=== PATIENT | male | born 1990 ===

== ENCOUNTER 2017-06-25 16:55 | Emergency (ER) | payer OTHER ==
[~2017-06-25] VITALS: Ht 180.3 cm; Wt 86.2 kg
[2017-06-25] MEDS ORDERED: AZIT-1 PO (17:08)
--- NOTE | 2017-06-25 17:11 | ER Report ---
History and Physical Time Seen By MD: 17:03 Hx. of Stated Complaint: LYMPH NODE SWELLING FOR 6 DAYS, SEEN AT URGENT CARE, PLACED ON ZITHROMAX YESTERDAY. NOTED RASH ON SATURDAY AM ON CHEST AND SHOULDERS, RASH IS WORSE NOW, TESTED FOR STREP AND MONO, BOTH NEGATIVE, AWAITING TROAT CULTURE HPI/ROS CHIEF COMPLAINT: Lymph node swelling, rash HISTORY OF PRESENT ILLNESS: Patient is a 27-year-old male who presents the ED with complaint of left neck lymph node swelling that is notified past 6 days. He states he also developed a rash 2 days ago. He states that he was seen at urgent care yesterday and was given Zithromax to cover for bacterial infection. He states that he did have a negative strep and mono test completed at that time. He has not noted any fatigue. He denies any cough, sore throat, otalgia. He has not noted any fever. REVIEW OF SYSTEMS: Constitutional: See history of present illness. Eyes: No discharge. ENT: See history of present illness. Cardiovascular: No chest pain, no palpitations. Respiratory: See history of present illness. No shortness of breath Gastrointestinal: No abdominal pain, no vomiting. Skin: See history of present illness. Neurological: No headache. Allergies: Coded Allergies: cefaclor (Verified Allergy, Unknown, 06/25/17) Home Meds Reported Medications Azithromycin (ZITHROMAX) 250 Mg Tablet, 1 TAB PO QDAY, TAB 06/25/17 Reviewed Nurses Notes: Yes Old Medical Records Reviewed: Yes Constitutional Vital Sign - Last 24 Hours 06/25/17 17:00 Temp 99.0 Pulse 84 Resp 20 B/P (MAP) 143/94 Pulse Ox 95 O2 Delivery Room Air Physical Exam General Appearance: The patient is alert, has no immediate need for airway protection and no signs of toxicity. Patient appears to be no acute distress. Eyes: Pupils equal and round no pallor or injection. ENT, Mouth: There is no exudate or pharyngeal edema or erythema appreciated. There is a left anterior cervical lymphadenopathy appreciated. This area is tender to palpation. Respiratory: There are no retractions, lungs are clear to auscultation. Cardiovascular: Regular rate and rhythm. Gastrointestinal: Abdomen is soft and non tender, no masses, bowel sounds normal. Skin: There is a slightly erythematous macular papular rash noted of the chest, thoracic back, shoulders, neck. Musculoskeletal: Neck is supple non tender. Extremities are nontender, nonswollen and have full range of motion. DIFFERENTIAL DIAGNOSIS: After history and physical exam differential diagnosis was considered for rash and the swelling including lymphadenitis, acute pharyngitis, upper respiratory infection, viral illness, pneumonia. Medical Decision Making Data Points Result Diagram: 06/25/17 1716 06/25/17 1716 Laboratory Hematology Test 06/25/17 17:16 Red Blood Count 6.12 M/uL (4.00-5.60) Mean Corpuscular Volume 82.1 fL (80.0-96.0) Mean Corpuscular Hemoglobin 28.7 pg (26.0-33.0) Mean Corpuscular Hemoglobin Concent 34.9 g/dL (32.0-36.0) Red Cell Distribution Width 12.6 % (11.5-14.5) Mean Platelet Volume 7.3 fL (7.2-11.1) Neutrophils (%) (Auto) 81.8 % (39.4-72.5) Lymphocytes (%) (Auto) 10.3 % (17.6-49.6) Monocytes (%) (Auto) 5.0 % (4.1-12.4) Eosinophils (%) (Auto) 2.4 % (0.4-6.7) Basophils (%) (Auto) 0.5 % (0.3-1.4) Nucleated RBC Relative Count (auto) 0.5 /100WBC Neutrophils # (Auto) 6.8 K/uL (2.0-7.4) Lymphocytes # (Auto) 0.9 K/uL (1.3-3.6) Monocytes # (Auto) 0.4 K/uL (0.3-1.0) Eosinophils # (Auto) 0.2 K/uL (0.0-0.5) Basophils # (Auto) 0.0 K/uL (0.0-0.1) Nucleated RBC Absolute Count (auto) 0.04 K/uL Sodium Level 138 mmol/L (137-145) Potassium Level 4.0 mmol/L (3.5-5.0) Chloride Level 99 mmol/L (98-107) Carbon Dioxide Level 28 mmol/L (22-30) Blood Urea Nitrogen 16 mg/dl (9-21) Creatinine 1.20 mg/dl (0.66-1.25) Glomerular Filtration Rate Calc > 60.0 Random Glucose 109 mg/dl (75-110) Calcium Level 9.7 mg/dl (8.4-10.2) Chemistry Test 06/25/17 17:16 White Blood Count 8.4 k/uL (4.5-11.0) Red Blood Count 6.12 M/uL (4.00-5.60) Hemoglobin 17.5 g/dL (14.0-18.0) Hematocrit 50.2 % (42.0-52.0) Mean Corpuscular Volume 82.1 fL (80.0-96.0) Mean Corpuscular Hemoglobin 28.7 pg (26.0-33.0) Mean Corpuscular Hemoglobin Concent 34.9 g/dL (32.0-36.0) Red Cell Distribution Width 12.6 % (11.5-14.5) Platelet Count 227 K/uL (150-450) Mean Platelet Volume 7.3 fL (7.2-11.1) Neutrophils (%) (Auto) 81.8 % (39.4-72.5) Lymphocytes (%) (Auto) 10.3 % (17.6-49.6) Monocytes (%) (Auto) 5.0 % (4.1-12.4) Eosinophils (%) (Auto) 2.4 % (0.4-6.7) Basophils (%) (Auto) 0.5 % (0.3-1.4) Nucleated RBC Relative Count (auto) 0.5 /100WBC Neutrophils # (Auto) 6.8 K/uL (2.0-7.4) Lymphocytes # (Auto) 0.9 K/uL (1.3-3.6) Monocytes # (Auto) 0.4 K/uL (0.3-1.0) Eosinophils # (Auto) 0.2 K/uL (0.0-0.5) Basophils # (Auto) 0.0 K/uL (0.0-0.1) Nucleated RBC Absolute Count (auto) 0.04 K/uL Glomerular Filtration Rate Calc > 60.0 Calcium Level 9.7 mg/dl (8.4-10.2) ED Course/Re-evaluation ED Course Will obtain labs with patient. 06/25/2017 5:48:01 pm - discussed all labs with patient which are essentially normal. Given his rash and lymphadenopathy more than likely does have a viral illness with viral exanthem. He could have some lymphadenitis which is currently the most likely reason why some Zithromax. Discussed with him that it is Zithromax and monitor the lymph node for resolution. If this does not resolve in the next 7-10 days he should follow-up with his primary care provider to have further workup of his lymphadenopathy likely including ultrasound and biopsy. Decision to Disposition Date: Jun 25, 2017 Decision to Disposition Time: 17:49 Depart Departure Latest Vital Signs Vital Signs Date Time Temp Pulse Resp B/P (MAP) Pulse Ox O2 Delivery O2 Flow Rate FiO2 06/25/17 17:00 99.0 84 20 143/94 95 Room Air Impression: Primary Impression: Lymphadenitis Additional Impression: Rash Condition: Improved Disposition: HOME OR SELF-CARE Patient Instructions: Lymphadenopathy (ED) Additional Instructions: Stay well-hydrated. Follow-up with primary care provider in 2-3 days. If having any worsening or concerning symptoms may return to the emergency department. Problem Qualifiers RONNY BEGUM PA-C Jun 25, 2017 17:11
[2017-06-25 17:30] LABS: PLATELET COUNT, AUTOMATED 227 K/uL (150-450)
[2017-06-25 17:50] VITALS: BP 132/84
== END 2017-06-25 17:54 | disposition home or self-care (01) ==
LOC: ER 17:05
DX: I88.9 Nonspecific lymphadenitis, unspecified (principal)
CPT/HCPCS: 36415; 82310; 82374; 82435; 82565; 82947; 84132; 84295; 84520; 85025; 99281

== ENCOUNTER 2017-08-19 19:50 | Emergency (ER) | payer OTHER ==
[~2017-08-19] VITALS: Ht 180.3 cm; Wt 86.2 kg
[~2017-08-19 19:50] MED LIST: AZIT-1 PO
[2017-08-19 19:55] VITALS: BP 142/114
[2017-08-19] MEDS ORDERED: DOXYCYCLINE HYCL 100 MG TAB TH PO ONE (20:20)
[2017-08-19] MEDS ORDERED: DOXY-181 PO (20:23)
[2017-08-19] MEDS ORDERED: LORA1TAB69 PO (20:23)
--- NOTE | 2017-08-19 20:25 | ER Report ---
History and Physical Time Seen By MD: 19:55 Hx. of Stated Complaint: PATIENT HAS HAD SINUS CONGESTION FOR A COUPLE OF WEAKS, PATIENT HAS BEEN TAKING MUCINEX AND TYLENOL FOR SYMPTOMS, THEN THIS EVENING HE STARTED HAVING SEVER HEADACHE ON THE LEFT SIDE RIGHT BEHIND EYE. HPI/ROS 27-year-old male with left maxillary sinus pain for 2 weeks has been taking Mucinex D does not feel he is getting any better no fever or chills has had one sinus infection the past Allergies: Coded Allergies: cefaclor (Verified Allergy, Unknown, 08/19/17) Home Meds Active Scripts Loratadine/Pseudoephedrine (CLARITIN-D 24 HOUR TABLET) 1 Each Tab.er.24h, 1 EACH PO DAILY, #30 CAP 0 Refills Prov:JONI DILLON 08/19/17 Doxycycline Hyclate (DOXYCYCLINE HYCLATE) 100 Mg Capsule, 100 MG PO BID, #14 CAPSULE Prov:JONI DILLON 08/19/17 Discontinued Reported Medications Azithromycin (ZITHROMAX) 250 Mg Tablet, 1 TAB PO QDAY, TAB 06/25/17 Past Medical/Surgical History Sinusitis Hx Smoking: Yes Hx Substance Use Disorder: No Hx Alcohol Use: Yes (OCC) Constitutional Vital Sign - Last 24 Hours 08/19/17 19:55 Temp 98.0 Pulse 81 Resp 16 B/P (MAP) 142/114 Pulse Ox 96 O2 Delivery Room Air Physical Exam 27-year-old male alert oriented mild distress HEENT has normocephalic/ atraumatic tympanic membranes are non-reddened throat is non-reddened sinuses pain to the left maxillary sinus with palpation do notice some postnasal drainage with this no lymphadenopathy heart rate regular lungs clear to auscultation abdomen soft moves all extremities Medical Decision Making Data Points Laboratory Hematology Test 08/19/17 00:00 08/19/17 19:59 Respiratory Syncytial Virus (PCR) Positive (NEGATIVE) Influenza Virus Type A (PCR) Negative (NEGATIVE) Influenza Virus Type B (PCR) Negative (NEGATIVE) Chemistry Test 08/19/17 00:00 08/19/17 19:59 Respiratory Syncytial Virus (PCR) Positive (NEGATIVE) Influenza Virus Type A (PCR) Negative (NEGATIVE) Influenza Virus Type B (PCR) Negative (NEGATIVE) ED Course/Re-evaluation ED Course Patient is sent home with doxycycline and Claritin-D for a sinus infection help with primary care in 1 week return to ER for worsening condition Decision to Disposition Date: Aug 19, 2017 Decision to Disposition Time: 19:55 Depart Departure Latest Vital Signs Vital Signs Date Time Temp Pulse Resp B/P (MAP) Pulse Ox O2 Delivery O2 Flow Rate FiO2 08/19/17 19:55 98.0 81 16 142/114 96 Room Air Impression: Primary Impression: Sinusitis Condition: Improved Disposition: HOME OR SELF-CARE Referrals: LE BOUCHER MD 2 Days New Scripts Loratadine/Pseudoephedrine (CLARITIN-D 24 HOUR TABLET) 1 Each Tab.er.24h 1 EACH PO DAILY, #30 CAP 0 Refills Prov: JONI DILLON 08/19/17 Doxycycline Hyclate (DOXYCYCLINE HYCLATE) 100 Mg Capsule 100 MG PO BID, #14 CAPSULE Prov: JONI DILLON 08/19/17 Patient Instructions: Sinusitis (ED) Additional Instructions: Take doxycycline 100 mg 1 tablet twice a day for a week, get [id number] sinus rinses for your sinuses use daily, Claritin-D one daily for sinus headache , push fluids, return for worsening pain, JONI DILLON Aug 19, 2017 20:25
[2017-08-19] MEDS ORDERED: OXYMETAZOLINE SPRAY 15 ML BTL ENA SCH (21:00)
== END 2017-08-19 20:55 | disposition home or self-care (01) ==
LOC: ER 20:08
DX: J01.00 Acute maxillary sinusitis, unspecified (principal)
CPT/HCPCS: 87502; 87798; 99283